=== PATIENT | male | born 1960 | race Caucasian/White ===

== ENCOUNTER → 2016-11-01 | Outpatient (CLI) | payer BC ==
[~2016-11-01] MED LIST: PRED20TA2 PO; RMCI IV
--- NOTE | 2016-11-01 14:50 | DIAGNOSTIC IMAGING REPORT ---
ABD/PELVIS NO IV OR ORAL CONT HISTORY: 56 years-old Male RT LOWER QUAD PAIN,POST TOTAL COLECTOMY acute right lower quadrant abdominal pain. History of prior total colectomy history of ulcerative colitis. COMPARISON: CT abdomen and pelvis 11/16/2015 TECHNIQUE: Multiple axial CT images of the abdomen and pelvis were obtained without contrast. A dose lowering technique was used consistent with the principals of ANNALISE. FINDINGS: Lung bases are generally clear with mild subsegmental dependent bibasilar atelectasis. No pneumoperitoneum is identified. Imaged inferior cardiac chambers are unremarkable. Geographic fatty infiltration of the liver is present. The spleen, pancreas and adrenal glands are within normal limits. Layering gallstones are seen within a noninflamed appearing gallbladder lumen. Punctate nonobstructing calculus is seen within the superior pole left kidney. Cyst of the superior pole right kidney is again seen, 11 mm. No hydronephrosis. There is mild wall thickening of the urinary bladder with mildly enlarged prostate. Fat filled bilateral inguinal hernias are noted. Mild to moderate atherosclerotic plaquing of the abdominal aorta is noted. No bulky retroperitoneal adenopathy. There are a small few areas of ovoid centrally fatty inflammatory changes involving the left upper abdomen as seen on images 114, 149 and 156 of the axial series suggesting omental infarctions. Postsurgical changes from a prior subtotal colectomy with right lower quadrant ileostomy noted. There is a moderate-sized parastomal hernia with moderate degree of edema and inflammatory changes extending into the hernia sac. Focal loop of mildly prominent small bowel measuring up to 2.5 cm proximally is markedly narrowed and moderately inflamed as it extends into the hernia sac as seen on images 253-269 of the axial series. Soft tissues are unremarkable. Bones are intact. IMPRESSION: 1. Prior subtotal colectomy with right lower quadrant ileostomy. 2. Moderate-sized parastomal hernia contains both mesenteric fat and small bowel loops with a focal loop of small bowel partially extending into the hernia sac demonstrating wall thickening, focal luminal narrowing and moderate surrounding inflammatory changes. No evidence of high-grade bowel obstruction, pneumatosis or pneumoperitoneum. 3. 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 4. Cholelithiasis. 5. Nonobstructing punctate calculus of the superior pole left kidney. The above report was generated using voice recognition software. It may contain grammatical, syntax or spelling errors. Electronically signed by: Naren Garcia M.D. 11/01/2016 2:49 PM Dictated Date/Time: 11/01/2016 2:34 PM
== END | disposition home or self-care (01) ==
LOC: C.CTS 14:14
PROVIDERS: ATTEND Physician Assistant
DX: R10.31 Right lower quadrant pain (principal); R19.4 Change in bowel habit; K50.90 Crohn's disease, unspecified, without complications; Z90.49 Acquired absence of other specified parts of digestive tract; K43.5 Parastomal hernia without obstruction or gangrene; K80.20 Calculus of gallbladder without cholecystitis without obstruction; N20.0 Calculus of kidney

== ENCOUNTER → 2016-11-23 | Outpatient (CLI) | payer BC ==
--- NOTE | 2016-11-23 13:07 | DIAGNOSTIC IMAGING REPORT ---
KUB HISTORY: History of Crohn's disease with history of subtotal colectomy with right lower quadrant ileostomy. Patient recently ingested a radiopaque tablet per history. The study was obtained to assess transit of the tablet. CROHN'S COLITIS K50.10 COMPARISON: CT 11/01/2016 FINDINGS: The bowel gas pattern is non-obstructive. There is no organomegaly. No renal calculi. No ureteral calculi. No pneumoperitoneum or pneumatosis. No fracture. No radiopaque tablet identified. IMPRESSION: 1. Nonobstructive bowel gas pattern. 2. No radiopaque tablet identified. Electronically signed by: Naren Garcia M.D. 11/23/2016 1:06 PM Dictated Date/Time: 11/23/2016 1:03 PM
== END | disposition home or self-care (01) ==
LOC: C.RAD 12:12
PROVIDERS: ATTEND Internal Medicine Gastroenterology
DX: K50.10 Crohn's disease of large intestine without complications (principal)

== ENCOUNTER → 2017-03-25 | Outpatient (CLI) | payer OTHER ==
--- NOTE | 2017-03-25 10:03 | DIAGNOSTIC IMAGING REPORT ---
CHEST 2 VIEWS ROUTINE CLINICAL HISTORY: Preoperative evaluation. Crohn's colitis. COMPARISON STUDY: Chest radiograph June 30, 2013. FINDINGS: Lung volumes are normal. No pneumothorax or pleural effusion is noted. Cardiac size is normal. Mediastinal contours are normal. There is no evidence of pulmonary edema. IMPRESSION: No acute cardiopulmonary findings. Electronically signed by: Ralph Diaz M.D. 03/25/2017 10:02 AM Dictated Date/Time: 03/25/2017 10:00 AM
== END | disposition home or self-care (01) ==
LOC: C.RAD 09:22
PROVIDERS: ATTEND Colon & Rectal Surgery
DX: Z01.818 Encounter for other preprocedural examination (principal); K50.10 Crohn's disease of large intestine without complications